=== PATIENT | female | born 1990 | race Caucasian/White ===

== ENCOUNTER 2022-02-03 10:16 | Emergency (ER) | payer MEDICAID, SELFPAY ==
[2022-02-03 10:37] VITALS: BP 130/87; PULSE 103; RESP 16; TEMP 36.9; O2SAT 100; BMI 29.9
--- NOTE | 2022-02-03 12:14 | CRLHL7_ITS ---
For Patients: As a result of the Century Cures Act, medical imaging exams and procedure reports are released immediately into your electronic medical record. You may view this report before your referring provider. If you have questions, please contact your health care provider. INDICATION: Twisting injury. TECHNIQUE: Three views of the right foot. COMPARISON: None. FINDINGS: Nondisplaced transverse fracture of the proximal diaphysis of the 5th metatarsal. Alignment is normal. The joint spaces are preserved. The soft tissues are unremarkable. IMPRESSION: Nondisplaced fracture of the 5th metatarsal proximal diaphysis (Acuna fracture). Dictated by Karthikeyan Manzanares MD @ 02/03/2022 1:06:34 PM (Electronically Signed)
--- NOTE | 2022-02-03 12:14 | ED.LOWEXIN ---
HPI - Extremity Injury (Lower) General Chief Complaint: Extremity Pain/Injury, Lower Stated Complaint: Hurt right foot Time Seen by Provider: 02/03/22 11:20 History of Present Illness HPI Narrative: This 31-year-old female comes in with an injury to her right foot that occurred yesterday. She states she was coming down off of a ladder when she twisted her this foot. She has had some pain along the 4th and 5th metatarsals since then. She is ambulatory. There is no sign of obvious deformity or bruising. Related Data Previous Rx's Medication Instructions Recorded Crutches- Adult #1 ea 02/03/22 Allergies Allergy/AdvReac Type Severity Reaction Status Date / Time codine Allergy Severe Uncoded 02/03/22 10:37 Review of Systems Status of ROS: Reports: 10 or more systems reviewed and unremarkable except as noted in History and below Narrative: Constitutional: No fevers, no weight gain or loss. Eyes: No discharge. No vision changes. HENT: No congestion, no sore throat, no ear pain. Cardiovascular: No chest pain, no palpitations. Respiratory: No shortness of breath, no wheezes, no cough. Gastrointestinal: No abdominal pain, no vomiting, no diarrhea. Genitourinary: No dysuria, no hematuria. Musculoskeletal: Normal range of motion. Right foot injury as described above. Skin: No rashes, no pruritis. Neurological: No dizziness, weakness, sensory change, speech change. Endo/Heme/Allergies: No bruising or bleeding. No polydipsia. Pysch: no suicidality, no anxiety, no insomnia. All other systems reviewed and are negative. PFSH PFSH Social History Smoking Status: Never smoker Do you use any of these nicotine containing products: None Second hand tobacco smoke exposure: No How often do you have a drink containing alcohol: never How often do you have six or more drinks on one occasion: Never AUDIT-C Alcohol total score: 0 Non-prescribed substance use: denies use service: No Exam Narrative: Exam Narrative: Constitutional: Well-developed, well-nourished, no acute distress. HEENT: Normocephalic, atraumatic. Neck: Normal range of motion. Nontender. Supple. Heart: Intact distal pulses. Lungs: No chest discomfort. No wheezes, rhonchi, or rales. Abdomen: Nontender. Back: Normal range of motion. Extremities: Tenderness along the 4th and 5th metatarsals of the right foot. No sign of bruising or swelling. Skin: Intact. No rash. Warm. No erythema or pallor. Neurologic: No altered sensation. No weakness. Alert and oriented. Psychiatric: No suicidality. No anxiety or depression. No insomnia. Nursing notes and vitals signs are reviewed. Const: Vital Signs, click to edit/add: Vital Signs - 24 hr 02/03/22 10:37 Temperature 98.5 F Pulse Rate [Pulse Oximeter] 103 H Respiratory Rate 16 [facility] 130/87 Pulse Oximetry 100 Oxygen Delivery Me thod Room Air Course Vital Signs Vital signs: Initial Vital Signs Temperature 98.5 F 02/03/22 10:37 Temperature Source Temporal Artery Scan 02/03/22 10:37 Pulse Rate 103 H 02/03/22 10:37 Pulse Rhythm 02/03/22 10:37 Pulse Strength 3+ Normal 02/03/22 10:37 Respiratory Rate 16 02/03/22 10:37 Blood Pressure 130/87 02/03/22 10:37 Blood Pressure Mean 101 02/03/22 10:37 Blood Pressure Position Sitting 02/03/22 10:37 Pulse Oximetry 100 02/03/22 10:37 Oxygen Delivery Method 02/03/22 10:37 Vital Signs Temperature 98.5 F 02/03/22 10:37 Pulse Rate 103 H 02/03/22 10:37 Respiratory Rate 16 02/03/22 10:37 Blood Pressure 130/87 02/03/22 10:37 Pulse Oximetry 100 02/03/22 10:37 Oxygen Delivery Method 02/03/22 10:37 Temperature 98.5 F 02/03/22 10:37 Pulse Rate 103 H 02/03/22 10:37 Respiratory Rate 16 02/03/22 10:37 Blood Pressure 130/87 02/03/22 10:37 Pulse Oximetry 100 02/03/22 10:37 Oxygen Delivery Method 02/03/22 10:37 MDM - Extremity Injury (Lower) MDM Narrative Medical decision making narrative: This patient comes in with an injury to her right foot. X-ray images show a fracture of the proximal 5th metatarsal typical of a Acuna fracture. This is minimally displaced. The patient was placed in ortho glass posterior splint given the strong likelihood that without immobilization this can result in a nonunion. She was fitted for crutches. A return to work note is provided. Follow-up appointment with orthopedic clinic is also arranged. Imaging Data XR R foot: Radiologist's impression: Nondisplaced fracture of the 5th metatarsal proximal diaphysis (Acuna fracture). Discharge Plan Discharge Clinical Impression: Acuna fracture Patient Disposition: Home, Self-Care Condition: Unchanged Additional Instructions: No weight-bearing on the right foot. Wear splint and use crutches. Follow-up with orthopedic clinic appointment as scheduled. Use [id number] medicines as needed and directed. Prescriptions: New (DME) Crutches- Adult Misc See Rx Instructions .ROUTE .MEDSUPPLY Qty: 1 0RF Rx Instructions: As directed Follow Up/Referrals: Nancy Prado MD [Primary Care Provider] - Stand Alone Forms: [employer] Info Instructions
--- OUTSIDE RECORDS SUMMARY | 2022-02-03 12:58 | XMS_ITS | Clinical Summary ---
:1990 Author Organization [facility] [place] [address] Care Team Providers Name Role Phone Nancy Prado MD Primary Care Provider [phone] Allergies Active Allergy Reactions Severity Noted Date Comments Codeine Hives 12/16/2006 Medications No known medications Active Problems Problem Noted Date state, incidental 10/01/2017 Overview: Patient requests tubal. Signed electronically by Elizabet Prado MD ......... 7:54 P M 10/01/2017 09/17/2017 Overview: Formatting of this note is dif ferent from the original. Estimated Date of Delivery: 02/18/2018 No LMP recorded (lmp unknown). Patient i s . Last Tdap- 12/08/2017 Last Flu vaccine- 05/22/2016 Allergies Allergen Reactions ? ? Codeine Hives Obstetric History T0 L1 SAB0 TAB0 Ectopic0 Multiple0 Live s1 # Outcome Date GA Lbr Colin/2nd Weight Sex Delivery Anes PTL Lv 3 Current 2 05/03/15 36w2d 2.89 kg (6 lb 6 oz) M Vag EPI JOBY Name: Samir 1 Create lab flowsheet for OB labs- Component Latest Ref Rng & Units 09/15/2017 018 09/15/2017 10:20 AM 10:20 AM 10:20 AM ANTIBODY SCREEN Negative Negative SPECIMEN EXPIRATION DATE/TIME 09/18/17 23:59 HEMOGLOBIN 12.0 - 16.0 g/dL 12.2 MCV 80 - 100 fL 83 RUBELLA IGG ANTIBODY Positive 1.24 HEMOGLOBIN A1C SCREENING <6.4 % 5.3 ABORH O Rh Positive HBSAG Nonreactive Nonreactive HEPATITIS C ANTIBODY Non-Reactive Non-Reactive HIV-1/HIV-2 ANTIBODY Non-Reactive Non-Reactive TREPONEMA PALLIDUM Negative Negative Culture Component Latest Ref Rng & Units 09/15/2017 10:25 AM ANTIBODY SCREEN Negative SPECIMEN EXPIRATION DATE/TIME HEMOGLOBIN 12.0 - 16.0 g/dL MCV 80 - 100 fL RUBELLA IGG ANTIBODY HEMOGLOBIN A1C SCREENING <6.4 % ABORH HBSAG Nonreactive HEPATITIS C ANTIBODY Non-Reactive HIV-1/HIV-2 ANTIBODY Non-Reactive TREPONEMA PALLIDUM Negative Culture No growth (<1,000 CFU/mL) Past Medical History: Diagnosis Date ? ? 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 S/P surgery twice at [facility] ? ? No Significant Past Medical History Past Surgical History: Procedure Laterality Date ? ? PELVIS/HIP JOINT SURGERY 15 months, 3 years for congenital dislo cated hip No data on file. 3rd Problems (from 09/15/17 to present) No problems associated with this episod eDaly Shaver RNC.....09/17/2017 10:14 A M Bacterial vaginosis 11/13/2014 Congenital dislocation of right hip 10/28/2013 Overview: Found at 15 months of age. S/P surgery t wice at [facility] Unspecified constipation 06/21/2012 Contraception 08/08/2009 Preeclampsia, severe, third trimester Resolved Problems Problem Noted Date Resolved Date Supervision of normal in third trimester 7 10/01/2017 Encounter for supervision of normal first in first 11/13/2014 12/08/2016 trimester Overview: INDICATION: anatomical survey. Technique: Second trimester survey ultrasound was p erformed. Findings: A living intrauterine is ident ified in cephalic presentation. Ultrasound age 21 weeks 1 day with SONYA of 05/21/2015. heart rate 149 beats per minute. KLEVER 14.3 cm. The closed cervix is 5.3 cm in length. The estimated weigh t is 403 g at the 64th percentile. The placenta is located posteriorly without previa. The following anatomical structures were identified and appear normal: Lateral ventricles, cerebellum, cisterna magna, profile, face, nose/lips, spine, four-chamber heart with outflow tracts, diaphragm, stomach, kidneys, bladder, three-vessel cord with insertions and extremities. Impression: 1. Cephalic presentation. 2. Ultrasound age 21 weeks 1 day with ED D of 05/21/2015. 3. No anatomical abnormalities augustine ntified. Dictated by Riley Giovani @ Jan 09 2015 1:3 6PM Last Assessment & Plan: 03/05/2015 DTAP and flu shot Immunizations Name Administration Dates Next Due DTaP 02/12/1995, 08/08/1991, 12/10/1990, 06/16/1990, 03/09/1990 HIB HbOC (HibTITER) 02/19/1991, 12/10/1990, 06/16/1990 Hepatitis B (Peds) 12/16/2006, 01/04/2002 Human Papilloma Virus Vaccine 12/10/2012 Influenza, IIV4 02/04/2018, 05/22/2016, 03/05/2015 MMR 01/04/2002, 02/19/1991 Oral Polio Vaccine 02/12/1995, 08/08/1991, 06/16/1990, 10/1989 Tdap 12/08/2017, 03/05/2015, 12/16/2006 Family History Medical History Relation Name Comments Good Health Father Hyperlipidemia Maternal Grandfather Hypertension Maternal Grandmother Hyperlipidemia Mother Medication problem Sister Relation Name Status Comments Father Alive Maternal Grandfather Alive Maternal Grandmother Alive Mother Alive Paternal Grandfather Alive Paternal Grandmother Alive Sister Accident Social History Tobacco Use Types Packs/Day Years Used Date Never Smoker Smokeless Tobacco: Never Used Tobacco Cessation: Counseling Given: Yes Alcohol Use Standard Drinks/Week Comments No 0 (1 standard drink = 0.6 oz pure alcoho l) Sex Assigned at Date Recorded Not on file Obstetrics History Para Term AB IAB SAB Ectopic Multiple Living Live Births 3 3 1 2 0 0 0 0 1 3 3 Date Outcome GA Total Labor/2nd/3rd Weight Sex Delivery Anes PTL Joby A 1 A5 Name Clin Labor 05/03 36w 2.89 kg M Vag Epidu Lauren Le o /2014 2d (6 lb 6 ral ng oz) 12/18 Term 39w 18h F N Lauren Dede 2d 00m ng Complications: None 01/08/2018 34w1d 1.88 M VAGINAL IV Meds, N Living 9 9 LAW,BB Dr leslie (4 WILLIAM Epidural SIERR A Swenson lb 2.3 oz) Complications: None Delivery [facility]: [facility] (AKD 2000 MB L&D TRIAGE) Last Filed Vital Signs Vital Sign Reading Time Taken Comments Blood Pressure 136/84 08/26/2018 8:34 AM CDT manual Pulse 120 08/26/2018 8:17 AM CDT Temperature 36.8 ??C (98.3 ??F) 08/26/2018 8:17 AM CDT Respiratory Rate 20 08/26/2018 8:17 AM CDT Oxygen Saturation 100% 08/26/2018 8:17 AM CDT Inhaled Oxygen Concentration - - Weight 99.8 kg (220 lb) 08/26/2018 8:17 AM CDT Height 163.8 cm (5' 4.5) 08/26/2018 8:17 AM CDT Body Mass Index 37.18 08/26/2018 8:17 AM CDT Plan of Treatment Health Maintenance Due Date Last Done Comments COVID-19 vaccine series (#1) 04/26/1990 BMI (ht and wt on same day) for 08/27/2019 08/26/2018, 11/0 09/2017, age 18+ 02/23/2018, Additional history exists Depression screening for age 12+ 08/27/2019 08/26/2018, , 01/19/2018, Additional history exists Pap test for age 21-65 02/23/2021 02/23/2018, 07/02/2015, 12/10/2012 Influenza for age 9-49 01/02/2022 02/04/2018, 05/22/2016, 03/05/2015 Tetanus booster 12/09/2027 12/08/2017, 03/05/2015, 12/16/2006 Hepatitis C screening for age Completed 09/15/2017, 2016, 18-79 10/20/2014 Tdap Completed 12/08/2017, 03/05/2015, 12/16/2006 Results Not on filefrom Last 3 Months Insurance Payer Benefit Plan / Subscriber ID Effective Dates Phone Addre ss Type Group BLUE CROSS BLUE CROSS OF [id number] 2017-Present [address] [place] [address] [phone] (Home) [place] [facility] [place] [address] Ame Perkins Personal/Famil Self 1990 [phone] (Home) [facility] [place] [address] [employer] [facility] Employer 05/04/2000 [phone] [place] [address] [employer] (Work) [place] [id number] Advance Directives Latest Code Status on File Code Status Date Activated Date Inactivated Comments Full Code 01/05/2018 9:35 PM 01/11/2018 9:16 PM Code Status Discussion: Not Discussed Care Teams Director Medical Surgical Relationship Specialty Start Date End Date Nancy Prado MD PCP - General Family Practice 03/01/15 [place] [address]
== END 2022-02-03 13:59 | disposition home or self-care (01) ==
PROVIDERS: Emergency Provider Emergency Medicine Emergency Medical Services; PCP Family Medicine
DX: S92.352A Displaced fracture of fifth metatarsal bone, left foot, initial encounter for closed fracture (principal); X50.1XXA Overexertion from prolonged static or awkward postures, initial encounter; Y93.E9 Activity, other interior property and clothing maintenance; Y92.019 Unspecified place in single-family (private) house as the place of occurrence of the external cause; Y99.8 Other external cause status
CPT/HCPCS: 29515; 73630; 99283; 99284

== ENCOUNTER 2024-01-16 21:44 | Emergency (ER) | payer MEDICAID, SELFPAY ==
[2024-01-16 21:50] VITALS: BP 145/95; PULSE 78; RESP 18; TEMP 36.9; O2SAT 99; BMI 26.8
--- NOTE | 2024-01-16 22:00 | ED.GENADULT ---
HPI - General Adult General Chief complaint: Extremity Pain/Injury, Lower Stated complaint: pain R foot Time Seen by Provider: 01/16/24 21:57 History of Present Illness HPI narrative: pt states she has been having discomfort on top of right foot for last week and a half . Denies injury . Pt states she did have fracture a year and a half ago . Pt. 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 Took tylenol without relief. 33-year-old woman presenting to emergency depart with concern of right foot pain. She indicates area of discomfort in the mid dorsal metatarsals somewhat distally. On review of records looks as though had a base of 5th metatarsal fracture in this same foot she reports a year and a half ago. Presents here in Crocs but ambulates on at work as a PRODUCTION SHIFT SUPERVISOR usually in [employer] tennis shoes. Increasing pain over the last 10 days or so. Does not go barefoot typically. Not helped with acetaminophen. Underlying history of right hip reconstruction as baby/child. Related Data Allergies Allergy/AdvReac Type Severity Reaction Status Date / Time codeine Allergy Hives Verified 06/15/23 17:27 Review of Systems Status of ROS: Reports: 6 or more systems reviewed and unremarkable except as noted in History and below PFSH PFS Surgical History History of hip surgery (~1990) ?Z98.890 - Other specified postprocedural states (ICD-10) Social History Smoking Status: Never smoker Do you use any of these nicotine containing products: None Second hand tobacco smoke exposure: No How often do you have a drink containing alcohol: never How often do you have six or more drinks on one occasion: Never AUDIT-C Alcohol total score: 0 Non-prescribed substance use: denies use service: No Exam Narrative: Exam Narrative: Very pleasant. NAD. Castillo is off her right foot. Examination the right foot does not reveal any swelling. No pain about the ankle. She is a little sore to palpation over the plantar surface metatarsal heads particularly middle of the foot. Also sore corresponding in the dorsal distal metatarsals over 3rd and 4th approximately. Unclear if this is really over the bone or the soft tissue between the rays. Const: Vital Signs, click to edit/add: Vital Signs - 24 hr 09/14/24 21:50 Temperature 98.5 F Pulse Rate [Pulse Oximeter] 78 Respiratory Rate 18 Blood Pressure [Ri ght Upper Arm] 145/95 H Pulse Oximetry 99 Oxygen Delivery Me thod Room Air Documenting provider has reviewed patient's vital signs: yes Course Vital Signs Vital signs: Initial Vital Signs Temperature 98.5 F 01/16/24 21:50 Temperature Source Temporal Artery Scan 01/16/24 21:50 Pulse Rate 78 01/16/24 21:50 Respiratory Rate 18 01/16/24 21:50 Blood Pressure 145/95 H 01/16/24 21:50 Blood Pressure Mean 111 H 01/16/24 21:50 Blood Pressure Position Sitting 01/16/24 21:50 Pulse Oximetry 99 01/16/24 21:50 Oxygen Delivery Method Room Air 01/16/24 21:50 Vital Signs Temperature 98.5 F 01/16/24 21:50 Pulse Rate 78 01/16/24 21:50 Respiratory Rate 18 01/16/24 21:50 Blood Pressure 145/95 H 01/16/24 21:50 Pulse Oximetry 99 01/16/24 21:50 Oxygen Delivery Method Room Air 01/16/24 21:50 Temperature 98.5 F 01/16/24 21:50 Pulse Rate 78 01/16/24 21:50 Respiratory Rate 18 01/16/24 21:50 Blood Pressure 145/95 H 01/16/24 21:50 Pulse Oximetry 99 01/16/24 21:50 Oxygen Delivery Method Room Air 01/16/24 21:50 Medical Decision Making MDM Narrative Medical decision making narrative: Differential includes occult fracture, regional pain secondary to old injury, neuroma, capsulitis. Will check within x-ray due to duration. X-ray of the right foot reviewed by me does not reveal any acute abnormality. Discussed options for treatment. Given an Stephon wrap to assist with icing. See patient discharge plan for further discussion Medical Records Medical records reviewed: Yes I reviewed the patient's medical records Discharge Plan Discharge Clinical Impression: Pain in metatarsus Patient Disposition: Home, Self-Care Condition: Stable Additional Instructions: Certainly can have pain related to prior injuries. No clear fracture here. You have pain in an area as well that might suggest capsulitis. It sounds as though you are avoiding walking on hard surfaces; are at least protecting your feet from hard surfaces generally. You might benefit from placement of a metatarsal pad/cookie on the insole of your current shoes to take off the pressure to the metatarsal heads. As discussed there are some insoles that also have that metatarsal arch support as well. Otherwise maybe ibuprofen or acetaminophen. Usually decreasing what activity is causing pain. Ice your foot a couple of times daily over the next few days to a week if possible. Follow-up if simply not improved in 7-10 days after these treatments. I would consider an appointment at that point with Podiatry. Dr. Reyna practices locally Follow Up/Referrals: Nancy Prado MD [Primary Care Provider] - Stand Alone Forms: [employer] Info Instructions
--- NOTE | 2024-01-16 22:08 | CRLHL7_ITS ---
For Patients: As a result of the Century Cures Act, medical imaging exams and procedure reports are released immediately into your electronic medical record. You may view this report before your referring provider. If you have questions, please contact your health care provider. Indication: Right foot pain Technique: Three views of the right foot Comparison: None Findings/Impression: No acute radiographic abnormality appreciated. Dictated by Francisco Casarez MD @ 01/16/2024 10:42:12 PM (Electronically Signed)
--- OUTSIDE RECORDS SUMMARY | 2024-01-16 22:16 | XMS_ITS | Clinical Summary ---
Author Organization [facility] Address [place], [place] [address] Care Team Providers Care Civil Project Engineer Name Role Phone Nancy Prado MD Primary Care Prov ider Allergies Active Allergy Reactions Criticality Noted Date Comments Soraya Brown 12/16/2006 Medications Medication Sig Dispensed Refills Start Date End Date Status SUMAtriptan (IMITREX) 25 mg tabletIndications:Non intractable headache, unspecified chronicity pattern, unspecified headache type Take 1 Tablet (25 mg) by mouth every 2 hours if needed for Migraine. Give at minimum 2hrs apart. Max Dose: 200mg per 24hrs. Wait to fill until patient calls 10 Tablet 3 07/02/2023 Active betamethasone dipropionate 0.05% (DIPROSONE 0.05% CREAM) 0.05 % creamIndications:Dysh idrotic eczema Apply topically to affected area(s) two times daily. Use for two weeks or until skin improves. 15 g 1 09/21/2023 Active Active Problems No known active problems Resolved Problems Problem Noted Date Diagnosed Date Resolved Date state, incidental 10/01/2017 0 09/21/2023 Overview (10/01/2017): Patient requests tubal. Signed electronically by Elizabet Prado MD ......... 7:54 PM 10/01/2017 09/17/2017 09/21/2023 Overview (12/09/2017): Estimated Date of Delivery: 02/18/2018 No LMP recorded (lmp unknown). Patient is . Last Tdap- 12/08/2017 Last Flu vaccine- 05/22/2016 Allergies Allergen Reactions ? ? Codeine Hives Obstetric History T0 L1 SAB0 TAB0 Ectopic0 Multiple0 Live Births1 # Outcome Date GA Lbr Colin/2nd Weight Sex Delivery Anes PTL Lv 3 Current 2 05/03/15 36w2d 2.89 kg (6 lb 6 oz) M Vag EPI JOBY Name: Samir 1 Create lab flowsheet for OB labs- Component Latest Ref Rng & Units 09/15/2017 09/15/2017 09/15/2017 10:20 AM 10:20 AM 10:20 AM [...] months of age. S/P surgery twice at [facility] ? ? No Significant Past Medical History Past Surgical History: Procedure Laterality Date ? ? 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 3rd Problems (from 09/15/17 to present) No problems associated with this episode. BLANCA Doyle.....09/17/2017 10:14 AM Supervision of normal pregna ncy in third trimester 12/08/2016 10/01/2017 Encounter for supervision of normal first in first trimester 11/13/2014 12/08/2016 Overview (03/05/2015): INDICATION: anatomical survey. Technique: Second trimester survey ultrasound was performed. Findings: A living intrauterine is identified in cephalic presentation. Ultrasound age 21 weeks 1 day with SONYA of 05/21/2015. heart rate 149 beats per minute. KLEVER 14.3 cm. The closed cervix is 5.3 cm in length. The estimated weight is 403 g at the 64th percentile. The placenta is located posteriorly without previa. The following anatomical structures were identified and appear normal: Lateral ventricles, cerebellum, cisterna magna, profile, face, nose/lips, spine, four-chamber heart with outflow tracts, diaphragm, stomach, kidneys, bladder, three-vessel cord with insertions and extremities. Impression: 1. Cephalic presentation. 2. Ultrasound age 21 weeks 1 day with SONYA of 05/21/2015. 3. No anatomical abnormalities identified. Dictated by Riley Matute @ Jan 09 2015 1:36PM Assessment & Plan (03/05/2015 6:29 PM MEDICAL RECORDS AUDITOR): 03/05/2015 DTAP and flu shot Bacterial vaginosis 11/13/2014 09/21/19 24 Congenital dislocation of right hip 10/28/2013 09/21/2023 Overview (10/28/2013): Found at 15 months of age. S/P surgery twice at [facility] Unspecified constipation 06/21/2012 Contraception 08/08/2009 09/21/2023 Preeclampsia, severe, third trimester 09/21/2023 Encounters Date Type Department Care Team Description 12/02/2023 Telephone [facility] [address] [place] [address] Nancy Prado MD Appointment Reminder (/) from Last 3 Months Immunizations Name Administration Dates Next Due COVID-19 vaccine (Xiaohongshu NTAmorelie 30mcg/0.3mL) CRISTOFER BOCANEGRA 05/29/2020,05/08/2020 DTaP 02/12/1995, 2,12/10/1990, 991,03/09/1990 HIB HbOC (HibTITER) 02/19/1991,12/10/1990,1990 Hepatitis B (Peds) 12/16/2006,01/04/2002 Human Papilloma Virus Vaccine 12/10/2012 Influenza, IIV4 03/22/2022, 8,05/22/2016, 015 Influenza, IIV4 (=>6mos) MDV 01/30/2021 MMR 01/04/2002,02/19/1991 Oral Polio Vaccine 02/12/1995, 2,06/16/1990, 990 Tdap 12/08/2017,03/05/2015,12/16/2006 Family History Medical History Relation Name Comments Good Health Father Hyperlipidemia Maternal Grandfather Hypertension Maternal Grandmother Hyperlipidemia Mother Medication problem Sister Relation Name Status Comments Father Alive Maternal Grandfather Alive Maternal Grandmother Alive Mother Alive Paternal Grandfather Alive Paternal Grandmother Alive Sister Accident Social History Tobacco Use Types Packs/Day Years Used Date Smoking Tobacco: Never Smokeless Tobacco: Never Tobacco Cessation:Counseling Given: Yes Alcohol Use Standard Drinks/Week Comments No 0 (1 standard drink = 0.6 oz pur e alcohol) PHQ-2 Answer Date Recorded PHQ-2 TOTAL SCORE 0 07/02/2023 Social Connections Answer Date Recorded Frequency of Communication with Friends and Fami ly 0 09/21/2023 Financial Resource Strain Answer Date R ecorded Difficulty of Paying Living Expenses 3 09/21/2023 Difficulty of Paying Living Expenses Not on file 09/21/2023 Food Insecurity Answer Date Recorded Worried About Running Out of Food in the Last Ye ar 1 09/21/2023 Transportation Needs Answer Date Record ed Lack of Transportation (Medical) 1 09/21/2023 Housing Stability Answer Date Recorded Unable to Pay for Housing in the Last Year 1 09/21/2023 Sex and Gender Information Value Date Recorded Sex Assigned at Not on file Gender Identity Not on file Sexual Orientation Not on file Obstetrics History Para Term AB IAB SAB Ectopic Multiple Livin g Live Births 3 3 1 2 0 0 0 0 1 3 3 Date Outcome GA Total Labor Labor/2nd/3rd Weight Sex Type Anes PTL Joby A1 A5 Name Clin 2014 36w 2d 2.89 kg (6 lb 6 oz) M Vag Epidur al Livin g Samir 2016 Term 39w 2d 18h 00m F N Livin g Dede Complications:None 2017 34w 1d 1.88 kg (4 lb 2.3 oz) M VAGINA L WILLIAM IV Meds,E pidura l N Livin g [address] Complications:None Delivery Location:[facility] (UTD 2000 MB L&D TRIAGE) Last Filed Vital Signs Vital Sign Reading Time Taken Comments Blood Pressure 143/79 09/21/2023 10:00 AM CDT Pulse 93 09/21/2023 10:00 AM CDT Temperature 36.8 ??C (98.3 ??F) 08/26/2018 8:17 AM CD T Respiratory Rate 20 08/26/2018 8:17 AM CDT Oxygen Saturation 100% 07/02/2023 11:01 AM MEDICAL RECORDS AUDITOR Inhaled Oxygen Concentration - - Weight 79.8 kg (176 lb) 09/21/2023 10:00 AM CDT Height 163.8 cm (5' 4.5) 08/26/2018 8:17 AM CDT Body Mass Index 29.74 08/26/2018 8:17 AM CDT Plan of Treatment Health Maintenance Due Date Last Done Comments BMI (ht and wt on same day) for age 18+ 08/27/2019 08/26/2018, 03/08/2018, 02/23/2018, Additional history exists Pap test for age 21-65 02/23/2021 8, 07/02/2015, 12/10/2012 COVID-19 vaccine series (2022- season) 2024 05/29/2020, 05/08/2020 Influenza for age 9-49 01/03/2024 2, 01/30/2021, 02/04/2018, Additional history exists Depression screening for age 12+ 07/01/2024 07/02/2023, 08/26/2018, 02/23/2018, Additional history exists Tetanus booster 12/09/2027 12/08/2017, 06/2014, 12/16/2006 HIV for age 15-65 Completed 09/15/2017, , 10/20/2014 Hepatitis C screening for age 18-79 Completed 09/15/2017, 05/20/2016, 10/20/2014 Tdap Completed 12/08/2017, 06/2014, 12/16/2006 Pneumococcal series for age 6-64 Aged Out No longer eligible based on patient's age to complete this topic Procedures Procedure Name Priority Date/Time Associated Diagnosis Comments RECYCLING CENTER OPERATOR THIN PREP PAP SCREEN IMAGED Routine 02/23/2018 9:00 AM CDT Pap smear for cervical cancer screening ANTI HIV 1/2 Routine 09/15/2017 10:20 AM CDT Encounter for supervision of normal first in first trimester ANTI HCV Routine 09/15/2017 10:20 AM CDT Encounter for supervision of normal first in first trimester from Last 3 Months or Most Recently Relevant to Health Maintenance Results * RECYCLING CENTER OPERATOR THIN PREP PAP SCREEN IMAGED (02/23/2018 9:00 AM CDT) Case Report Gynecologic Cytology Report ? Case: [id number] ? Authorizing Provider: ??Nancy Prado ? Collected: ? 02/23/2018 0900 ? MD Fartun ? Ordering Location: ? [facility] ?? Received: ?02/23/2018 1027 ? Clinic ? First Screen: ?Irasema Coronel ? Specimen: ?RECYCLING CENTER OPERATOR ThinPrep Vial Screening, Cervical ? 03/03/2018 6:40 PM CDT [facility] ENTRAL LABORATORY INTERPRETATION/ RESULT NEGATIVE FOR INTRAEPITHELIAL LESION OR MALIGNANCY (NIL) (none) 03/03/2018 6:40 PM CDT [facility] ENTRAL LABORATORY IMEN ADEQUACY Satisfactory for evaluation Endocervical component present 03/03/2018 6:40 PM CDT [facility] ENTRAL LABORATORY HPV REQUEST HPV if ASCUS 03/03/2018 6:40 PM CDT [facility] ENTRAL LABORATORY Date of LMP Unknown 03/03/2018 6:40 PM CDT [facility] ENTRAL LABORATORY Last Pap Date 07/02/15 03/03/2018 6:40 PM CDT [facility] ENTRAL LABORATORY Last Pap Result NIL 8 6:40 PM CDT [facility] ENTRAL LABORATORY Abnormal Pap or Freeland Bx in last 5 years No 03/03/2018 6:40 PM CDT [facility] EN[facility]AL LABOR[facility]ORY Menstrual Status 03/03/2018 6:40 PM CDT [facility] ENTRAL LABORATORY Freeland Bx Done Today No 03/03/2018 6:40 PM CDT [facility] ENTRAL LABORATORY Additional Information None given 03/03/2018 6:40 PM CDT [facility] ENTRAL LABORATORY Automated Review Successful 03/03/2018 6:40 PM CDT [facility] ENTRAL LABORATORY Comment:Specimen processed s uccessfully by automated size marker device, ThinPrep Imaging System, [employer] Note The pap test is a screening technique, not a diagnostic procedure. ??It is used primarily to screen for squamous cancers and precursor lesions. ??Published studies have shown that it is subject to both false negative and false positive results. ??The pap test should not be used as the sole means to diagnose or exclude pre-malignant and malignant lesions. Cytology is screened and interpreted at [facility] - [address], [place] [address] and [facility] - [address]; [place] [address] and [facility] - [address]; [place] [address] and [facility] [address]; [place] [address] 03/03/2018 6:40 PM CDT [facility] ENTRCA LABORATORY Other (Cervical) Non-Blood / Unknown 02/23/2018 9:00 AM CDT 02/23/2018 10:27 AM CDT Nancy Prado MD PATHOLOGY/ CYTOLOGY Performing Organization Address City/[facility]/ZIP Co de Phone Number [facility] [address] [place] [address], * ANTI HCV (09/15/2017 10:20 AM CDT) HEPATITIS C ANTIBODY Non-React ekta Non-React ekta 09/15/2017 5:50 PM CDT [facility] TRAL LABORATORY Comment:Antibodies to HCV no t detected; does not exclude the possibility of exposure to HCV. Blood BLOOD SPECIMEN / Unknown Venipuncture / Unknown 09/15/2017 10:20 AM CDT 09/15/2017 10:20 AM CDT Tami ELAINE SEND OUTS [facility] [address] [place] [address], [place] * ANTI HIV 1/2 (09/15/2017 10:20 AM CDT) HIV-1/HIV-2 ANTIBODY Non-Reacti ve Non-Reacti ve 09/15/2017 5:53 PM CDT [facility] TRAL LABORATORY Comment:HIV-1 p24 and HIV-1/ HIV-2 Ab not detected. Blood BLOOD SPECIMEN / Unknown Venipuncture / Unknown 09/15/2017 10:20 AM CDT 09/15/2017 10:20 AM CDT Tami ELAINE SEND OUTS [facility] [address] [place] [address], from Last 3 Months or Most Recently Relevant to Health Maintenance Advance Directives * Full Code (Latest Code Status on File) Date Activated Date Inactivated Comments 01/05/2018 9:35 PM 01/11/2018 9:16 PM Question Answer Comments Code Status Discussion: Not Discussed Care Teams Civil Project Engineer Relationship Specialty Start Date End Date Nancy Prado MD [address] [place] [address] PCP - General Family Practice 03/01/15
== END 2024-01-16 23:08 | disposition home or self-care (01) ==
PROVIDERS: Emergency Provider Family Medicine; PCP Family Medicine
DX: M79.674 Pain in right toe(s) (principal)
CPT/HCPCS: 73630; 99283; 99284

== ENCOUNTER 2025-03-12 14:29 | Emergency (ER) | payer MEDICAID, SELFPAY ==
--- OUTSIDE RECORDS SUMMARY | 2025-03-12 14:31 | XMS_ITS | Clinical Summary ---
Author Organization [facility] Address [address] [place] [address] Care Team Providers Care Maintenance Shop Manager Name Role Phone Nancy Prado MD Primary Care Prov ider Allergies Active Allergy Reactions Criticality Noted Date Comments Soraya Brown 12/16/2006 Medications SUMAtriptan (IMITREX) 25 mg tabletIndications :Nonintractable headache, unspecified chronicity pattern, unspecified headache type Take 1 Tablet (25 mg) by mouth every 2 hours if needed for Migraine. Give at minimum 2hrs apart. Max Dose: 200mg per 24hrs. Wait to fill until patient calls 10 Tablet 3 4 Active betamethasone dipropionate 0.05% (DIPROSONE 0.05% CREAM) 0.05 % creamIndications: Dyshidrotic eczema Apply topically to affected area(s) two times daily. Use for two weeks or until skin improves. 15 g 1 4 Active Active Problems No known active problems Resolved Problems Problem Noted Date Diagnosed Date Resolved Date state, incidental 10/01/2017 0 09/21/2023 Overview (10/01/2017): Patient requests tubal. Signed electronically by Elizabet Prado MD ......... 7:54 PM 10/01/2017 09/17/2017 09/21/2023 Overview (12/09/2017): Estimated Date of Delivery: 02/18/2018 No LMP recorded (lmp unknown). Patient is . Last Tdap- 12/08/2017 Last Flu vaccine- 05/22/2016 Allergies Allergen Reactions Codeine Hives Obstetric History T0 L1 SAB0 [...] (<1,000 CFU/mL) Past Medical History: Diagnosis Date Congenital dislocation of right hip 10/28/2013 Found at 15 months of age. S/P surgery twice at [facility] No Significant Past Medical History Past Surgical History: Procedure Laterality Date PELVIS/HIP JOINT SURGERY 15 months, 4 years [...] 1:36PM Assessment & Plan (03/05/2015 6:29 PM RESIDENTIAL CAREGIVER): 03/05/2015 DTAP and flu shot Bacterial vaginosis 11/13/2014 09/21/19 24 Congenital dislocation of right hip 10/28/2013 09/21/2023 Overview (10/28/2013): Found at 15 months of age. S/P surgery twice at [facility] Unspecified constipation 06/21/2012 Contraception 08/08/2009 09/21/2023 Preeclampsia, severe, third trimester 09/21/2023 Immunizations Immunization Administration Dates Next Due COVID-19 vaccine ([employer] 30mcg/0.3mL) PF, MDV 05/29/2020,05/08/2020 DTaP 02/12/1995, 2,12/10/1990,1990,03/09/1990 HIB HbOC (HibTITER) 02/19/1991,12/10/1990,1990 HPV 9 (Gardasil 9) 12/10/2012 Hepatitis B (Peds) 12/16/2006,01/04/2002 Human Papilloma Virus Vaccine 12/10/2012 Influenza, High-dose Quadriv alent Inactivated 01/30/2021 Influenza, IIV4 03/22/2022, 8,05/22/2016,2014 Influenza, IIV4 (=>6mos) MDV 01/30/2021 MMR 01/04/2002,02/19/1991 Oral Polio Vaccine 02/12/1995, 2,06/16/1990,1989 Tdap 12/08/2017,03/05/2015,12/16/2006 Family History Medical History Relation [...] 0 07/02/2023 Social Connections Answer Date Recorded Do you often feel lonely or isolated from those around you? 0 09/21/2023 Financial Resource Strain Answer Date R ecorded Difficulty of Paying Living Expenses 3 09/21/2023 Difficulty of Paying Living Expenses Not on file 09/21/2023 Food Insecurity Answer Date Recorded Do you worry your food will run out before you are able to buy more? 1 09/21/2023 Transportation Needs Answer Date Record ed Does lack of transportation keep you from medica l appointments? 1 09/21/2023 Does lack of transportation keep you from work, meetings or getting things that you need? 1 09/21/2023 Housing Stability Answer Date Recorded What is your housing situation today? 1 09/21/2023 Utilities Answer Date Recorded Do you have trouble paying f or utilities (for example, heat, electricity, water, phone)? 1 09/21/2023 Comments No Sex and Gender Information Value Date Recorded Sex Assigned at Not on file Legal Sex Female 5:24 AM RESIDENTIAL CAREGIVER Gender Identity Not on file Sexual Orientation [...] pidura l N Livin g 9 [address] J Luis woody Complications:None Delivery Location:[facility] (UTD 2000 MB L&D TRIAGE) Last Filed Vital Signs Vital Sign Reading Time Taken Comments Blood Pressure 139/86 09/15/2024 2:41 PM CDT Pulse 90 09/15/2024 2:41 PM CDT Temperature 36.8 C (98.3 F) 08/26/2018 8:17 AM CDT Respiratory Rate 20 08/26/2018 8:17 AM CDT Oxygen Saturation 100% 09/15/2024 2:41 PM CDT Inhaled Oxygen Concentration - - Weight 80.3 kg (177 lb) 09/15/2024 2:41 PM CDT Height 163.8 cm (5' 4.5) 08/26/2018 8:17 AM CDT Body Mass Index 29.91 08/26/2018 8:17 AM CDT Plan of Treatment Health Maintenance Due Date Last Done Comments Hepatitis B series for 19+ (3 of 3 - 3-dose series) 02/10/2007 12/16/2006, 01/04/2002 HPV series for age 9-45 (2 - 3-dose series) 01/07/2013 12/10/2012, 12/10/2012 BMI (ht and wt on same day) for age 18+ 08/27/2019 08/26/2018, 03/08/2018, 02/23/2018, Additional history exists Pap test for age 21-65 02/23/2021 8, 07/02/2015, 12/10/2012 Depression screening for age 12+ 07/01/2024 07/02/2023, 08/26/2018, 02/23/2018, Additional history exists Influenza Vaccine (#1) 2025 2, 01/30/2021, 02/04/2018, Additional history exists Tetanus booster 12/09/2027 12/08/2017, 11/0 06/2014, 12/16/2006 RSV vaccine for adults or (1 - 1-dose 75+ series) 2064 HIV for age 15-65 Completed 09/15/2017, , 10/20/2014 Hepatitis C screening for age 18-79 Completed 09/15/2017, 05/20/2016, 10/20/2014 Pneumococcal series for age 6-49 Aged Out No longer eligible based on patient's age to complete this topic Procedures Procedure Name Priority Date/Time Associated Diagnosis Comments ELECTRICAL TROUBLESHOOTER THIN PREP PAP SCREEN IMAGED Routine 02/23/2018 9:00 AM CDT Pap smear for cervical cancer screening ANTI HIV 1/2 Routine 09/15/2017 10:20 AM CDT Encounter for supervision of normal first in first trimester (HC) ANTI HCV Routine 09/15/2017 10:20 AM CDT Encounter for supervision of normal first in first trimester (HC) from Last 3 Months or Most Recently Relevant to Health Maintenance Results * ELECTRICAL TROUBLESHOOTER THIN PREP PAP SCREEN IMAGED (02/23/2018 9:00 AM CDT) Case Report Gynecologic Cytology Report Case: [id number] Authorizing Provider: Nancy Prado Collected: 02/23/2018 0900 MD Fartun Ordering Location: [facility] Received: 02/23/2018 1027 Clinic First Screen: Irasema Coronel Specimen: ELECTRICAL TROUBLESHOOTER ThinPrep Vial Screening, Cervical 03/03/2018 6:40 PM CDT [employer] ENTRAL LABORATORY INTERPRETATION/ RESULT NEGATIVE FOR INTRAEPITHELIAL LESION OR MALIGNANCY (NIL) (none) 03/03/2018 6:40 PM CDT [facility] at 1840 CDT SPECIMEN ADEQUACY Satisfactory for evaluation Endocervical component present 03/03/2018 6:40 PM CDT [facility] HPV REQUEST HPV if ASCUS 03/03/2018 6:40 PM CDT [facility] Date of LMP Unknown 03/03/2018 6:40 PM CDT [facility] ENTRAL LABORATORY Last Pap Date 07/02/15 03/03/2018 6:40 PM CDT [facility] ENTRAL LABORATORY Last Pap Result NIL 8 6:40 PM CDT [facility] ENTRAL LABORATORY Abnormal Pap or Dunn Bx in last 5 years No 03/03/2018 6:40 PM CDT [facility] ENTRAL LABORATORY Menstrual Status 03/03/2018 6:40 PM CDT [facility] ENTRAL LABORATORY Dunn Bx Done Today No 03/03/2018 6:40 PM CDT [facility] ENTRAL LABORATORY Additional Information None given 03/03/2018 6:40 PM CDT [facility] ENTRVT LABORATORY Automated Review Successful 03/03/2018 6:40 PM CDT [facility] ENTRAL LABORATORY Comment:Specimen processed s uccessfully by automated consultant in ergonomics and safety device, [employer]Prep Imaging System, [employer] Note The pap test is a screening technique, not a diagnostic procedure. It is used primarily to screen for squamous cancers and precursor lesions. Published studies have shown that it is subject to both false negative and false positive results. The pap test should not be used as the sole means to diagnose or exclude pre-malignant and malignant lesions. Cytology is screened and interpreted at [facility] - [address], [place] [address] [facility] - [address]; [place] [address] and [facility] - [address]; [place] [address] and [facility] [address]; [place] [address] 03/03/2018 6:40 PM CDT [facility] ENTRVT LABORATORY Other (Cervical) Non-Blood / Unknown 02/23/2018 9:00 AM CDT 02/23/2018 10:27 AM CDT us Nancy Prado MD PATHOLOGY/CYTOLOGY Final Result [facility] [address] [place] [address], [place] * ANTI HCV (09/15/2017 10:20 AM CDT) HEPATITIS C ANTIBODY Non-React ekta Non-React ekta 09/15/2017 5:50 PM CDT [facility] TRAL LABORATORY Comment:Antibodies to HCV no t detected; does not exclude the possibility of exposure to HCV. Blood BLOOD SPECIMEN / Unknown Venipuncture / Unknown 09/15/2017 10:20 AM CDT 09/15/2017 10:20 AM CDT Tami ELAINE SEND OUTS Final R esult [facility] [employer] LABORATORY [address] [place] [address], * ANTI HIV 1/2 (09/15/2017 10:20 AM CDT) HIV-1/HIV-2 ANTIBODY Non-Reacti ve Non-Reacti ve 09/15/2017 5:53 PM CDT [facility] TRAL LABORATORY Comment:HIV-1 p24 and HIV-1/ HIV-2 Ab not detected. Blood BLOOD SPECIMEN / Unknown Venipuncture / Unknown 09/15/2017 10:20 AM CDT 09/15/2017 10:20 AM CDT Tami ELAINE SEND OUTS Final R esult [facility] [employer] LABORATORY [address] [place] [address], from Last 3 Months or Most Recently Relevant to [place] [id number] [facility] Advance Directives * Full Code (Latest Code Status on File) Date Activated Date Inactivated Comments 01/05/2018 9:35 PM 01/11/2018 9:16 PM Question Answer Comments Code Status Discussion: Not Discussed Care Teams Maintenance Shop Manager Relationship Specialty Start Date End Date Nancy Prado MD [address] [place] [address] PCP - General Family Practice 03/01/15
[2025-03-12 14:34] VITALS: BP 138/83; PULSE 83; RESP 16; TEMP 36.7; O2SAT 100; BMI 30.9
--- NOTE | 2025-03-12 14:41 | CRLHL7_ITS ---
For Patients: As a result of the Cures Act, medical imaging exams and procedure reports are released immediately into your electronic medical record. You may view this report before your referring provider. If you have questions, please contact your health care provider. INDICATION: Heel pain TECHNIQUE: Two views calcaneus FINDINGS/IMPRESSION: Normal alignment. No acute fracture or acute osseous abnormalities are visualized. Possible soft tissue thickening over the calcaneus Dictated by Julisa Chu MD @ 03/12/2025 3:30:48 PM (Electronically Signed)
--- NOTE | 2025-03-12 14:54 | ED.GENADULT ---
HPI - General Adult General Chief complaint: Extremity Pain/Injury, Lower Stated complaint: R heel pain Time Seen by Provider: 03/12/25 14:38 Source: patient Mode of arrival: ambulatory Limitations: no limitations History of Present Illness HPI narrative: 34-year-old female coming in today complaining of heel pain that her present for several weeks. Walking on it makes it worse. Resting makes it better. She denies any trauma to the area. Patient is not a long distance runner. Related Data Home Medications ?Medication ?Instructions ?Recorded ?Confirmed acetaminophen [Tylenol] PO 02/09/24 02/09/24 Allergies Allergy/AdvReac Type Severity Reaction Status Date / Time codeine Allergy Hives Verified 02/09/24 09:52 Review of Systems Status of ROS: Reports: 6 or more systems reviewed and unremarkable except as noted in History and below PFSH [facility] Surgical History History of hip surgery (~1990) ?Z98.890 - Other specified postprocedural states (ICD-10) Social History Smoking Status: Never smoker Do you use any of these nicotine containing products: None Second hand tobacco smoke exposure: No How often do you have a drink containing alcohol: never How often do you have six or more drinks on one occasion: Never AUDIT-C Alcohol total score: 0 Non-prescribed substance use: denies use service: No Exam Narrative: Exam Narrative: Well-nourished well-developed patient in no acute distress. Alert and oriented. Answers questions appropriately. Mood and affect are appropriate. Thoughts are goal oriented and rational. No tangential or magical thinking noted. Patient speaks in full sentences without needing to catch her breath. HEENT: Normocephalic atraumatic. Pupils are equally round reactive to light. Extraocular muscles are intact. Foot has normal appearance. No swelling, no erythema. She has tenderness right over the bottom of the heel. Const: Vital Signs, click to edit/add: Vital Signs - 24 hr 03/12/25 14:34 Temperature 98.0 F Pulse Rate [Pulse Oximeter] 83 Respiratory Rate 16 Blood Pressure [Ri ght Upper Arm] 138/83 Pulse Oximetry 100 Oxygen Delivery Me thod Room Air Course Course ED Course: Differential diagnoses includes plantar fasciitis, heel spur, stress fracture. X-ray of the heel, read by me, does not show any acute pathology. Vital Signs Vital signs: Initial Vital Signs Temperature 98.0 F 03/12/25 14:34 Temperature Source Temporal Artery Scan 03/12/25 14:34 Pulse Rate 83 03/12/25 14:34 Pulse Rhythm Regular 03/12/25 14:34 Respiratory Rate 16 03/12/25 14:34 Blood Pressure 138/83 03/12/25 14:34 Blood Pressure Mean 101 03/12/25 14:34 Blood Pressure Position Sitting 03/12/25 14:34 Pulse Oximetry 100 03/12/25 14:34 Oxygen Delivery Method Room Air 03/12/25 14:34 Vital Signs Temperature 98.0 F 03/12/25 14:34 Pulse Rate 83 03/12/25 14:34 Respiratory Rate 16 03/12/25 14:34 Blood Pressure 138/83 03/12/25 14:34 Pulse Oximetry 100 03/12/25 14:34 Oxygen Delivery Method Room Air 03/12/25 14:34 Temperature 98.0 F 03/12/25 14:34 Pulse Rate 83 03/12/25 14:34 Respiratory Rate 16 03/12/25 14:34 Blood Pressure 138/83 03/12/25 14:34 Pulse Oximetry 100 03/12/25 14:34 Oxygen Delivery Method Room Air 03/12/25 14:34 Medical Decision Making MDM Narrative Medical decision making narrative: 34-year-old female with heel pain, very likely plantar fasciitis. Imaging Data X-ray calcaneus: Attestation: I have reviewed the pertinent imaging results. Radiologist's impression: TECHNIQUE: Two views calcaneus FINDINGS/IMPRESSION: Normal alignment. No acute fracture or acute osseous abnormalities are visualized. Possible soft tissue thickening over the calcaneus Discharge Plan Discharge Clinical Impression: Plantar fasciitis Patient Disposition: Home, Self-Care Condition: Stable Instructions: Plantar Fasciitis (ED), Plantar Fasciitis Exercises (ED) Additional Instructions: You should rest when possible and minimize activities that repetitively place pressure on the plantar fascia-you should avoid aggravating factors such as running, dancing, jumping and walking barefoot as much as possible. Footwear should provide cushioning to reduce pressure on the heel. You can purchase a prefabricated silicone heel insert and any specialty footwear store or pharmacy to see if this helps. Plantar fasciitis gets better for about 50% of people at around 3 months and for most people by 1 year. If your pain becomes unbearable, you can follow-up with a gas producer to have steroid injections done into the plantar fascia. Prescriptions: No Action acetaminophen [Tylenol] PO Follow Up/Referrals: Nancy Prado MD [Primary Care Provider, Family Practice] Stand Alone Forms: [facility] Info Instructions
== END 2025-03-12 15:42 | disposition home or self-care (01) ==
PROVIDERS: Emergency Provider Family Medicine; PCP Family Medicine
DX: M72.2 Plantar fascial fibromatosis (principal)
CPT/HCPCS: 73650; 99283; 99284